=== PATIENT | female | born 2005 | race Two or more races ===

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

== ENCOUNTER 2024-12-15 12:44 | Emergency (ER) | payer MEDICAID ==
[~2024-12-15] VITALS: Ht 160 cm; Wt 128.1 kg
--- NOTE | 2024-12-15 14:02 | ED.PDOC ---
History of Present Illness HPI Comments 19 y/o F, presents to the ED for CC of headache. Patient states, she has had a headache with associated dizziness and fatigue xdays. Patient reports, that she did recently start GLP-1 for weight loss and is unsure if symptoms maybe related. Patient denies nausea, vomiting, or headaches with aura. Chief Complaint: Headache Time Seen by MD: 13:55 Primary Care Provider: FIONA Reviewed Notes: Nurses Notes, Medications, Allergies Allergies: Coded Allergies: NO KNOWN ALLERGIES (Unverified , 08/14/11) Home Meds Active Scripts Famotidine (PEPCID TABLET) 20 Mg Tb, 20 MG GT BID for 7 Days, #14 TAB Prov:EDDIE WOMACK MD 08/06/22 Reported Medications Alprazolam (Alprazolam) 0.25 Mg Tab, 1 TAB PO PRN PRN for PANIC ATTACK 06/24/20 Trazodone Hcl (Trazodone Hcl) 50 Mg Tab, 50 MG PO HS for FOR SLEEP 06/24/20 Lurasidone Hydrochloride (LATUDA) 40 Mg Tab, 40 MG PO HS PER PT, PT TAKES LATUDA 60 MG & 40 MG PO HS (FOR A TOTAL OF 100 MG PO HS) 06/24/20 Lurasidone Hydrochloride (Latuda) 60 Mg Tab, 60 MG PO HS PER PT, PT TAKES LATUDA 60 MG & 40 MG PO HS (FOR A TOTAL OF 100 MG PO HS) 06/24/20 Albuterol Sulfate (VENTOLIN MDI) 90 Mcg Ih, 2 PUFF IN PRN PRN for WHEEZING/SOB 06/24/20 Information Source: Patient Mode of Arrival: Ambulatory Severity: Moderate Timing: Days Duration: Since onset Prehospital treatment: None Past Medical History PAST MEDICAL HISTORY: Denies Surgical History: Denies all surgeries GRADUATE STUDIES DEAN History: No Pertinent GRADUATE STUDIES DEAN History Family History Family History: Family hx of HTN Social History Smoker: Non-Smoker Alcohol: Denies ETOH Use Drugs: Denies Drug Use Lives In: Home Constitutional: denies: chills, diaphoresis, fatigue, fever, malaise, sweats, weakness, others EENTM: denies: blurred vision, double vision, ear bleeding, ear discharge, ear drainage, ear pain, ear ringing, eye pain, eye redness, hearing loss, mouth pain, mouth swelling, nasal discharge, nose bleeding, nose congestion, nose pain, photophobia, tearing, throat pain, throat swelling, voice changes, others Respiratory: denies: cough, hemoptysis, orthopnea, SOB at rest, shortness of breath, SOB with excertion, stridor, wheezing, others Cardiovascular: denies: chest pain, dizzy spells, diaphoresis, Dyspnea on exertion, edema, irregular heart beat, left arm pain, lightheadedness, palpitations, PND, syncope, others Gastrointestinal: denies: abdomen distended, abdominal pain, blood streaked bowels, constipated, diarrhea, dysphagia, difficulty swallowing, hematemesis, melena, nausea, poor appetite, poor fluid intake, rectal bleeding, rectal pain, vomiting, others Genitourinary: denies: abnormal vagina bleeding, burning, dyspareunia, dysuria, flank pain, frequency, hematuria, incontinence, pain, , vagina discharge, urgency, others Neurological: reports: headache; denies: dizziness, fainting, left sided numbness, left sided weakness, numbness, paresthesia, pre-existing deficit, right sided numbness, right sided weakness, seizure, speech problems, tingling, tremors, weakness, others Musculoskeletal: denies: back pain, gout, joint pain, joint swelling, muscle pain, muscle stiffness, neck pain, others Integumetry: denies: bruises, change in color, change in hair/nails, dryness, laceration, lesions, lumps, rash, wounds, others Allergic/Immunocompromised: denies: Difficulty Healing, Frequent Infections, Hives, Itching, others Hematologic/Lymphatic: denies: anemia, blood clots, easy bleeding, easy bruising, swollen glands, others Endocrine: denies: excessive hunger, excessive sweating, excessive thirst, excessive urination, flushing, intolerance to cold, intolerance to heat, unexplained weight gain, unexplained weight loss, others Psychiatric: denies: anxiety, bipolar disorder, depression, hopeless, panic disorder, schizophrenia, sleepless, suicidal, others All Other Systems: Reviewed and Negative Physical Exam General Appearance: Moderate Distress HEENT: Normal ENT Inspection, Pharynx Normal, TMs Normal Neck: Full Range of Motion, Non-Tender, Normal, Normal Inspection Respiratory: Chest Non-Tender, Lungs Clear, No Accessory Muscle Use, No Respiratory Distress, Normal Breath Sounds Cardiovascular: No Edema, No JVD, No Murmur, No Gallop, Normal Peripheral Pulses, Regular Rate/Rhythm Breast Exam: Deferred Gastrointestinal: No Organomegaly, Non Tender, No Pulsatile Mass, Normal Bowel Sounds, Soft Genitalia: Deferred Pelvic: Deferred Rectal: Deferred Extremities: No calf tenderness, Normal capillary refill, Normal inspection, Normal range of motion, Non-tender, No pedal edema Musculoskeletal : Apperance: Normal Neurologic: Alert, endoscopy registered nurse II-XII nml as Tested, No Motor Deficits, Normal Affect, Normal Mood, No Sensory Deficits Cerebellar Function: Normal Reflexes: Normal Skin: Dry, Normal Color, Warm Peripheral Pulses: 3+ Radial (R), 3+ Radial (L) Lymphatic: No Adenopathy Was a procedure done? Was a procedure done?: No Differential Dx Considerations may include: GENERALIZED HEADACHE, MIGRAINE, DEHYDRATION, ELECTROLYTE IMBALANCE X-Ray, Labs, Meds, VS Vital Signs Date Time Temp Pulse Resp B/P (MAP) Pulse Ox O2 Delivery O2 Flow Rate FiO2 12/15/24 12:46 97.2 82 15 116/62 96 97.2 Patient alert. Came in because of headache. Vitals stable. Answering all questions. [place] neurological examination. No leg swelling pain Able to ambulate without difficulty. No nystagmus pain Was given prescription of Motrin. Explained to the patient. Was told to follow up with her primary care is [facility]. Was told to come back if there is any problem. Time of 1ST Reevaluation: 14:25 Reevaluation 1ST: Improved Patient Education/Counseling: Diagnosis, Treatment Family Education/Counseling: No Family Present SEPSIS Sepsis Screen Date sepsis recognized/suspect: Dec 15, 2024 Time Sepsis recognized/suspect: 1249 Recent Procedure: No On Antibiotic Therapy: No Respiratory Rate >20: No Heart Rate >90: No Temp<36 C (96.8 F) or >38.3 C: No SBP <90 or MAP <65 mmHG: No New Acute Mental Status Change: No Is the patient on CPAP, BIPAP,: No Vital Signs Date Time Temp Pulse Resp B/P (MAP) Pulse Ox O2 Delivery O2 Flow Rate FiO2 12/15/24 12:46 97.2 82 15 116/62 96 97.2 Departure 1 Departure Time of Disposition: 14:28 Impression: Primary Impression: Autonomic disorder Additional Impression: Migraine Qualified Codes: G43.909 - Migraine, unspecified, not intractable, without status migrainosus Disposition: 01 HOME / SELF CARE / HOMELESS Condition: Good e-Prescriptions Ibuprofen Micronized (MOTRIN TABLET) 600 Mg Tb 600 MG PO TID PRN for 3 Days, #9 TAB *Black box warning-NSAIDS can increase risk of [place] & hypertension, GI irritation, ulceration, bleed, perferation. Do not use post cardiac surgery. Use short duration/lowest effective dose. Prov: IRENE BROWN MD 12/15/24 Discharged With: Self Critical Care Note Critical Care Time?: No Stability Stability form required: No Heart Score Heart Score: Heart Score Response (Comments) Value History N/A 0 EKG N/A 0 Age N/A 0 Risk Factors N/A 0 Troponin N/A 0 Total 0 I personally scribed for IRENE BROWN MD ([email or web address]) on 12/15/24 at 14:02. Electronically submitted by Olive Delvalle ([email or web address]). IRENE BROWN MD Dec 15, 2024 14:02
[2024-12-15] MEDS: HYDROcodone-ACET 10/325MG TAB PO ONE (14:15)
[2024-12-15] MEDS ORDERED: IBU600T PO (14:30)
[2024-12-15 15:00] VITALS: BP 118/72; PULSE 85; RESP 16; TEMP 97.8; O2SAT 98
== END 2024-12-15 15:14 | disposition home or self-care (01) ==
LOC: ER 12:44
DX: G43.909 Migraine, unspecified, not intractable, without status migrainosus (principal); G90.9 Disorder of the autonomic nervous system, unspecified